=== PATIENT | male | born 1960 | race African-American/Black ===

== ENCOUNTER 2019-05-27 12:14 | Emergency (ER) | payer BC ==
[~2019-05-27] VITALS: Ht 175.3 cm; Wt 66.7 kg
[2019-05-27 12:25] VITALS: BP 136/84
--- NOTE | 2019-05-27 12:26 | NUR ---
ED Nurse Note: Patient walked in to ER c/o rash on all over the body for 3 days. Patient aao x4 and ambulatory. skin clean and intact. calm and cooperative. rash present generalized area from head to toe. pt denied pain or itchiness. no bleeding or drainage noted. pt denied any possibilities of allergic reaction. pt reported that he has not have this episode before. pt went to urgent care and have taken Prednisone which did not help to improve rashes. pt is in gown.
--- NOTE | 2019-05-27 12:38 | Emergency Room Report ---
History of Present Illness General Chief Complaint: Skin Rash/Abscess Source: Patient Present Illness HPI 58-year-old male no past medical history no surgical history presents with sudden outbreak of rash, started 3 days ago, patient was given prednisone as an outpatient, he denies any fevers chills, denies any cough congestion, he did have one episode of abdominal pain 3 days ago but otherwise unremarkable review of systems, no fever, no nasal congestion, patient presents for evaluation. He also reports that he thinks there was a precursor rash on his back but he is unsure Allergies: Coded Allergies: No Known Allergies (Unverified , 05/27/19) Patient History Past Medical History: see triage record Reviewed Nursing Documentation: PMH: Agreed; PSxH: Agreed Nursing Documentation-PMH Past Medical History: No Stated History Review of Systems All Other Systems: negative except mentioned in HPI Physical Exam Vital Signs Date Time Temp Pulse Resp B/P (MAP) Pulse Ox O2 Delivery O2 Flow Rate FiO2 05/27/19 12:19 98.1 87 21 136/84 (101) 96 Room Air Sp02 EP Interpretation: reviewed, normal General Appearance: well appearing, no apparent distress, alert Head: normocephalic, atraumatic Eyes: bilateral eye PERRL, bilateral eye EOMI ENT: uvula midline, moist mucus membranes Neck: supple, thyroid normal, supple/symm/no masses Respiratory: lungs clear, no respiratory distress, no retraction, no accessory muscle use Cardiovascular #1: normal peripheral pulses, regular rate, rhythm, no edema, no gallop, no murmur Gastrointestinal: non tender, soft, no guarding, no rebound Musculoskeletal: normal inspection Neurologic: alert, oriented x3 Psychiatric: mood/affect normal Skin: warm/dry, other - Diffuse papular rash throughout the entire body, Nica tree distribution on the back Medical Decision Making Diagnostic Impression: Primary Impression: Rash and other nonspecific skin eruption ER Course 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, patient had a herald rash followed by Bernard tree just abrasion on the back now with a diffuse rash all over his body, he has no fevers no chills, no cough, no congestion, no coryza, disposition home with return precautions Last Vital Signs Date Time Temp Pulse Resp B/P (MAP) Pulse Ox O2 Delivery O2 Flow Rate FiO2 05/27/19 12:25 97.7 86 21 136/84 96 Room Air Disposition: HOME, SELF-CARE Condition: Stable Referrals: NOT CHOSEN IPA/,REFERRING (PCP) DERMATOLOGY [facility] Patient Instructions: Pityriasis Rosea, Rash, [id number] Additional Instructions: The patient was provided with discharge instructions, notified to follow-up with a primary care doctor and or specialist in the next 24-48 hours, and to return to the ED if they have worsening of their symptoms. Please note that this report is being documented using [employer] technology. This can lead to erroneous entry secondary to incorrect interpretation by the dictating instrument. Tomy Milian M.D. May 27, 2019 12:38
[2019-05-27 12:42] VITALS: BP 136/84
--- NOTE | 2019-05-27 12:43 | NUR ---
ER DISCHARGE NOTE: Patient is cleared to be discharged per ERMD with return to work noted, pt is aox4, on room air, with stable vital signs. pt was given dc and prescription instructions, pt was able to verbalize understanding, pt id band removed. pt is able to ambulate with steady gait. pt took all belongings.
== END 2019-05-27 12:43 | disposition home or self-care (01) ==
LOC: EMR 12:30
DX: R21 Rash and other nonspecific skin eruption (principal)
CPT/HCPCS: 99281